=== PATIENT | male | born 1990 | race Caucasian/White ===

== ENCOUNTER → 2017-09-16 | Outpatient (CLI) | payer OTHER ==
[2017-09-16 17:25] LABS: CHOLESTEROL/HDL RATIO 2.2
== END | disposition home or self-care (01) ==
LOC: C.LABBFT 14:31
PROVIDERS: ATTEND Internal Medicine
DX: Z00.00 Encounter for general adult medical examination without abnormal findings (principal)

== ENCOUNTER 2018-06-08 21:41 | Emergency (ER) | payer OTHER ==
[~2018-06-08] VITALS: Ht 190.5 cm; Wt 95.5 kg
[2018-06-08 21:47] VITALS: TEMP 36.8; Ht 190.5 cm; Wt 95.5 kg
[2018-06-08] MEDS ORDERED: AZITHROMYCIN 250 MG TAB PO STA (21:55)
[2018-06-08] MEDS ORDERED: HYOSCYAMINE SULFATE 0.125 MG SL TAB SL STA (21:55)
[2018-06-08] MEDS ORDERED: SODIUM CHLORIDE 0.9% 1000ML 1,000 ML IV STA (21:55)
[2018-06-08 22:51] LABS: BASO % 0.5 %; BASO ABS # 0.02 K/uL (0-0.2); EOS % 1.6 %; EOS ABS # 0.07 K/uL (0-0.5); HEMATOCRIT 41.2 % (42-52); HEMOGLOBIN 14.4 g/dL (14.0-18.0); IG# 0.01 K/uL (0.00-0.02); LYMPH % 30.4 %; MEAN CELL VOLUME 85.1 fL (80-100); MEAN CORPUSCULAR HEMOGLOBIN 29.8 pg (25-34); MEAN PLATELET VOLUME 11.3 fL (7.4-10.4); MONO ABS # 0.94 K/uL (0.11-0.59); NEUT % 45.3 %; NEUT ABS # 1.93 K/uL (1.4-6.5); PLATELET COUNT 187 K/uL (130-400); RED CELL DISTRIBUTION WIDTH CV 12.6 % (11.5-14.5); RED CELL DISTRIBUTION WIDTH SD 39.5 fL (36.4-46.3); WHITE BLOOD COUNT 4.27 K/uL (4.8-10.8)
[2018-06-08 23:10] LABS: CALCIUM 8.7 mg/dl (8.5-10.1); CREATININE 0.99 mg/dl (0.60-1.40); POTASSIUM 3.5 mmol/L (3.5-5.1)
[2018-06-08] MEDS ORDERED: AZIT500T PO (23:39)
--- NOTE | 2018-06-08 23:40 | EMERGENCY ROOM VISIT NOTE ---
History Report prepared by Braeden: Josafat Hernandez Under the Supervision of: Dr. Leeroy Urias M.D. First contact with patient: 21:49 Chief Complaint: ILLNESS Stated Complaint: DIAHRREA, ABDOMINAL PAINS,HEADACHE AND FEVER History of Present Illness The patient is a 27 year old male who presents to the Emergency Room with complaints of abdominal pain and diarrhea. The patient notes he has had the symptoms the past x4 days. He notes that when he has to have a bowel movement he will have a cramping pain in his abdomen. He notes he will push and cannot produce stool, and the pain becomes sharp. He states he has had the diarrhea the past few days and describes it as watery. He states he has intermittently noticed a red tint but is unsure if it is from wiping or not. He states he hasn' t had a large appetite the past few days, but has been drinking Pedialyte and Gatorade. The patient does not intermittent nausea but denies vomiting. He does note a subjective fever x1 day ago. He denies recent antibiotic use, travel outside of the country, or any new foods outside of his normal. 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 Source of History: patient Onset: 4 days Position: abdomen Symptom Intensity: moderate Quality: ache, sharp Timing: intermittent, worsening Modifying Factors (Worsening): other (trying to have a BM makes pain worse) Associated Symptoms: + fevers (Subjective), + nausea, + abdominal pain, + diarrhea, No vomiting Review of Systems See HPI for pertinent positives & negatives. A total of 10 systems reviewed and were otherwise negative. Constitutional: + fever Abdomen: + pain, + nausea, + diarrhea, No vomiting Family History Patient reports no known family medical history. Social History Smoking Status: Current Some Day Smoker Marital Status: in relationship Housing Status: lives with significant other Occupation Status: employed Current/Historical Medications Scheduled Azithromycin (Zithromax), 1 TAB PO DAILY Allergies Coded Allergies: Shellfish (Verified Allergy, Intermediate, Nausea/vomiting, 06/08/18) Physical Exam Vital Signs Date Time Temp Pulse Resp B/P (MAP) Pulse Ox O2 Delivery O2 Flow Rate FiO2 06/08/18 21:47 36.8 69 18 163/96 94 Room Air Physical Exam Constitutional: Vital signs reviewed. Eyes: Pupils are equal round reactive to light. Conjunctiva are noninjected. ENT: Pharynx is clear without erythema or exudate. Mucous membranes are moist. Neck supple without meningeal signs. Respiratory: Clear to auscultation bilaterally. Breath sounds are equal bilaterally. Cardiovascular: Regular rate and rhythm. No rubs or gallops. GI: Soft, nondistended and nontender. Bowel sounds are present. Musculoskeletal: No peripheral edema. No lower extremity tenderness. Integumentary: No cyanosis. Neurological: The patient is awake and alert. No focal deficits. Psychiatric: Normal affect. Medical Decision & Procedures Laboratory Results 06/08/18 22:35 Red Blood Count 4.84, Mean Corpuscular Volume 85.1, Mean Corpuscular Hemoglobin 29.8, Mean Corpuscular Hemoglobin Concent 35.0, Mean Platelet Volume 11.3, Neutrophils (%) (Auto) 45.3, Lymphocytes (%) (Auto) 30.4, Monocytes (%) (Auto) 22.0, Eosinophils (%) (Auto) 1.6, Basophils (%) (Auto) 0.5, Neutrophils # (Auto ) 1.93, Lymphocytes # (Auto) 1.30, Monocytes # (Auto) 0.94, Eosinophils # (Auto ) 0.07, Basophils # (Auto) 0.02 06/08/18 22:35 Test 06/08/18 22:35 White Blood Count 4.27 K/uL (4.8-10.8) Red Blood Count 4.84 M/uL (4.7-6.1) Hemoglobin 14.4 g/dL (14.0-18.0) Hematocrit 41.2 % (42-52) Mean Corpuscular Volume 85.1 fL (80-100) Mean Corpuscular Hemoglobin 29.8 pg (25-34) Mean Corpuscular Hemoglobin Concent 35.0 g/dl (32-36) Platelet Count 187 K/uL (130-400) Mean Platelet Volume 11.3 fL (7.4-10.4) Neutrophils (%) (Auto) 45.3 % Lymphocytes (%) (Auto) 30.4 % Monocytes (%) (Auto) 22.0 % Eosinophils (%) (Auto) 1.6 % Basophils (%) (Auto) 0.5 % Neutrophils # (Auto) 1.93 K/uL (1.4-6.5) Lymphocytes # (Auto) 1.30 K/uL (1.2-3.4) Monocytes # (Auto) 0.94 K/uL (0.11-0.59) Eosinophils # (Auto) 0.07 K/uL (0-0.5) Basophils # (Auto) 0.02 K/uL (0-0.2) RDW Standard Deviation 39.5 fL (36.4-46.3) RDW Coefficient of Variation 12.6 % (11.5-14.5) Immature Granulocyte % (Auto) 0.2 % Immature Granulocyte # (Auto) 0.01 K/uL (0.00-0.02) Anion Gap 8.0 mmol/L (3-11) Est Creatinine Clear Calc Drug Dose 134.0 ml/min Estimated GFR () 120.5 Estimated GFR (Non- 103.9 BUN/Creatinine Ratio 8.0 (10-20) Calcium Level 8.7 mg/dl (8.5-10.1) Medications Administered Medications (Trade) Dose Ordered Sig/Alonzo Route Start Time Stop Time Status Last Admin Dose Admin Sodium Chloride 1,000 ml @ 999 mls/hr Q1H1M STAT IV 06/08/18 21:55 06/08/18 22:55 DC 06/08/18 22:32 999 MLS/HR Azithromycin (Zithromax Tab) 500 mg NOW STAT PO 06/08/18 21:55 06/08/18 21:58 DC 06/08/18 22:41 500 MG Hyoscyamine Sulfate (Levsin Tab) 0.125 mg NOW STAT SL 06/08/18 21:55 06/08/18 21:58 DC 06/08/18 22:41 0.125 MG Medical Decision This is a 27-year-old male presents with lower diarrhea. Differential diagnosis includes foodborne illness, Campylobacter, enteritis, colitis, inflammatory bowel disease, irritable bowel syndrome. I did perform a limited focused review of portions of the patient's old chart on the electronic medical record. The patient has had no recent pertinent visits to this hospital. I did evaluate the patient as noted above. Patient is presenting with diarrhea for the past 4 days. 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 His coworker was diagnosed with Campylobacter and he has similar symptoms. On exam he does not have any tenderness to his abdomen to suggest an acute surgical process. IV access was established. I did treat him with normal saline IV. I did order and review the patient's blood work as noted in the electronic medical record. I did treat him with Zithromax for presumed Campylobacter. I did discuss the test results with the patient. He is feeling better. He was discharged with a 2 day course of Zithromax 500 mg. He was advised to follow-up with his doctor. Stool cultures are pending as well as C. difficile. Medication Reconcilliation Current Medication List: was personally reviewed by me Blood Pressure Screening Patient's blood pressure: Elevated blood pressure Blood pressure disposition: Referred to PCP Impression Primary Impression: Campylobacter diarrhea Scribe Attestation The scribe's documentation has been prepared under my direct and personally reviewed by me in its entirety. I confirm that the note above accurately reflects all work, treatment, procedures, and medical decision making performed by me. Departure Information Dispostion Home / Self-Care Prescriptions Azithromycin (ZITHROMAX) 500 Mg Tab 1 TAB PO DAILY for 2 Days, #2 TAB Prov: Leeroy Urias M.D. 06/08/18 Referrals Andrés Contreras M.D. (PCP) Patient Instructions My [facility]
[2018-06-08 23:50] VITALS: BP 149/78; PULSE 52; O2SAT 96
== END 2018-06-08 23:51 | disposition home or self-care (01) ==
LOC: C.EDB 21:44 → C.EDC 23:51
DX: A04.5 Campylobacter enteritis (principal); F17.200 Nicotine dependence, unspecified, uncomplicated; Z91.013 Allergy to seafood